=== PATIENT | female | born 1990 | race Caucasian/White ===

== ENCOUNTER 2019-04-13 12:00 | Emergency (ER) | payer OTHER ==
[~2019-04-13] VITALS: Ht 165.1 cm; Wt 53.0 kg
[2019-04-13 12:04] VITALS: BP 109/83
[2019-04-13] MEDS ORDERED: ketorolac tromethamine 15mg/ml inj. IM ONE (12:20)
[2019-04-13] MEDS ORDERED: CYCL-1 PO (12:22)
[2019-04-13] MEDS ORDERED: TRAM50TA2 PO (12:23)
== END 2019-04-13 12:41 | disposition home or self-care (01) ==
LOC: ER 12:00
DX: M54.2 Cervicalgia (principal); Z79.899 Other long term (current) drug therapy; X50.0XXA Overexertion from strenuous movement or load, initial encounter; Y93.89 Activity, other specified; Y92.89 Other specified places as the place of occurrence of the external cause; Y99.0 Civilian activity done for income or pay
CPT/HCPCS: 96372; 99283; J1885

== ENCOUNTER 2021-09-26 15:26 | Emergency (ER) | payer BC, OTHER ==
[~2021-09-26] VITALS: Ht 165.1 cm; Wt 52.7 kg
[~2021-09-26 15:26] MED LIST: CYCL-1 PO
[2021-09-26 16:33] LABS: BASOPHILS % (AUTO) 0.2 % (0-1); EOSINOPHILS % (AUTO) 0.1 % (0-6); HEMOGLOBIN 12.9 g/dl (12.0-16.0); LYMPHOCYTES # (AUTO) 1.4 X10'3 (1.1-4.8); MEAN CORPUSCULAR HEMOGLOBIN 31.3 PG (27.0-31.0); MEAN CORPUSCULAR HGB CONC 33.9 g/dL (33.0-36.5); MEAN CORPUSCULAR VOLUME 92.3 FL (78-98); MEAN PLATELET VOLUME 8.5 FL (7.4-10.4); MONOCYTES # (AUTO) 1.4 X10'3 (0-0.9); MONOCYTES % (AUTO) 7.1 % (2-12); NEUTROPHILS # (AUTO) 17.1 X10'3 (1.8-7.7); NEUTROPHILS % (AUTO) 85.6 % (42-75); PLATELET COUNT 237 X10'3 (140-440); RED BLOOD COUNT 4.11 X10'6 (4.20-5.60); RED CELL DISTRIBUTION WIDTH 13.8 % (11.5-14.5)
[2021-09-26 16:43] LABS: ALANINE AMINOTRANSFERASE 34 U/L (12-78); ALBUMIN 4.1 G/DL (3.4-5.0); ALBUMIN/GLOBULIN RATIO 1.2 (1.1-1.5); ALKALINE PHOSPHATASE 56 IU/L (46-116); ANION GAP 10 (8-16); ASPARTATE AMINO TRANSFERASE 15 U/L (10-37); BLOOD UREA NITROGEN 8 MG/DL (7-18); BUN/CREATININE RATIO 12.9 (6.6-38.0); CALCIUM 8.6 MG/DL (8.5-10.1); CHLORIDE 102 MMOL/L (99-107); CREATININE 0.62 MG/DL (0.40-0.90); GLUCOSE 93 MG/DL (70-104); SODIUM 138 MMOL/L (135-145); TOTAL CARBON DIOXIDE 25.8 MMOL/L (24-32); TOTAL PROTEIN 7.6 G/DL (6.4-8.2); eGFR > 90 ML/MIN
[2021-09-26] MEDS ORDERED: CefTRIAXone 2gm/D5W 50ml BAG 50 ML IV ONE (16:45)
[2021-09-26] MEDS ORDERED: normal saline 1000ML IV soln IVB ONE ×2 (16:45→18:50)
[2021-09-26 17:08] LABS: BETA HCG,QUANTITATIVE 4799 mIU/ml
[2021-09-26 17:30] LABS: URINE HCG POSITIVE (NEG)
[2021-09-26] MEDS ORDERED: ketorolac trometh. 30mg/ml inj. IV ONE (17:35)
[2021-09-26 17:40] LABS: CLARITY,URINE TURBID (Clear); COLOR,URINE YELLOW (Yellow); GLUCOSE, URINE NEGATIVE (Neg); KETONES,URINE NEGATIVE (Neg); LEUKOCYTE ESTERASE ,URINE NEGATIVE (Neg); NITRITES, URINE NEGATIVE (Neg); OCCULT BLOOD,URINE LARGE (Neg); PROTEIN,URINE 30 mg/dl (Neg); UROBILINOGEN,URINE 0.2 E.U/dL (0.2-1.0)
[2021-09-26 17:48] LABS: UA COLLECTION TYPE NON-SPECIFIED
[2021-09-26 17:50] LABS: HYALINE CASTS 0-3 /LPF (NEGATIVE); MUCUS STRANDS MODERATE /LPF (Neg)
[2021-09-26 17:51] LABS: BACTERIA,URINE 1+ /HPF (Neg); RBC,URINE TNTC /HPF (0-2)
[2021-09-26 17:55] LABS: SQUAMOUS EPITHELIAL CELL,UR MODERATE /LPF (FEW); TRANSITIONAL EPI CELLS,URINE FEW /HPF
[2021-09-26 18:11] VITALS: BP 100/59
[2021-09-26] MEDS ORDERED: potassium Cl 10 mEq/100mL bag IV ONE (18:45)
[2021-09-26] MEDS ORDERED: RHO(D) immune globulin 1,500 units (300 MCG) syringe IM ONE (18:50)
--- NOTE | 2021-09-26 19:57 | NUR ---
Assumed care of patient. Patient being transferred to [facility] for further workup.
--- NOTE | 2021-09-26 20:13 | NUR ---
Report called to Makayla LUDWIG
== END 2021-09-26 20:15 ==
LOC: EEVIPCON 15:27 → ER 15:27
DX: O03.9 Complete or unspecified spontaneous abortion without complication (principal); O36.4XX0 Maternal care for intrauterine death, not applicable or unspecified; Z20.822 Contact with and (suspected) exposure to COVID-19; E87.6 Hypokalemia; R10.84 Generalized abdominal pain; N93.8 Other specified abnormal uterine and vaginal bleeding; Z3A.08 8 weeks gestation of pregnancy; Z79.899 Other long term (current) drug therapy
CPT/HCPCS: 36415; 76815; 76817; 80053; 81001; 81025; 83605; 84145; 84702; 85025; 85610; 86885; 86900; 86901; 87040; 87088; 87635; 96365; 96367; 96372; 96375; 99291; C9803; J0696; J1885; J2790; J3480; J7030